=== PATIENT | male | born 1960 | race Caucasian/White ===

== ENCOUNTER 2020-09-14 09:46 | Emergency (ER) | payer OTHER ==
[~2020-09-14 09:46] MED LIST: COLCRYS0.6 MG PO; FLEXERIL10 MG PO; TRAMADOL HCL50 MG PO
[2020-09-14] MEDS ORDERED: ETODOLAC500 MG PO (10:50)
== END 2020-09-14 11:00 | disposition home or self-care (01) ==
LOC: FER 09:46
DX: S93.491A Sprain of other ligament of right ankle, initial encounter (principal); I10 Essential (primary) hypertension; W18.40XA Slipping, tripping and stumbling without falling, unspecified, initial encounter; Y92.009 Unspecified place in unspecified non-institutional (private) residence as the place of occurrence of the external cause
CPT/HCPCS: 73610

== ENCOUNTER 2020-10-09 18:46 | Emergency (ER) | payer OTHER ==
[~2020-10-09 18:46] MED LIST changes: +ETODOLAC500 MG PO
[2020-10-09] MEDS ORDERED: ULTRAM50 MG PO (23:01)
[2020-10-09] MEDS ORDERED: ETODOLAC500 MG PO (23:01)
== END 2020-10-09 23:35 | disposition home or self-care (01) ==
LOC: FER 18:46
DX: S83.512A Sprain of anterior cruciate ligament of left knee, initial encounter (principal); I10 Essential (primary) hypertension; X50.1XXA Overexertion from prolonged static or awkward postures, initial encounter; Y92.009 Unspecified place in unspecified non-institutional (private) residence as the place of occurrence of the external cause
CPT/HCPCS: 73564